=== PATIENT | male | born 1940 | race Caucasian/White ===

== ENCOUNTER 2017-12-30 09:55 | Emergency (ER) | payer MEDICARE, OTHER ==
[2017-12-30 10:09] VITALS: BP 126/75
--- NOTE | 2017-12-30 11:09 | ED Physician Documentation ---
PD HPI UPPER EXT INJURY - Stated complaint Stated Complaint: RT SHOULDER PX/RT ARM DISCOLORED - Chief complaint Chief Complaint: Ext Problem - History obtained from History obtained from: Patient, Family - History of Present Illness Location: Right, Shoulder Type of injury: Other (use yesterday) Where injury occurred: Home Timing - onset: Yesterday Timing - duration: Days (1) Timing - details: Gradual onset, Still present Improved by: Rest, Immobilization Worsened by: Moving, Palpating Associated symptoms: No: Weakness, Numbness, Tingling, Swelling Contributing factors: No: Anticoagulated Similar symptoms before: Has not had sx before Recently seen: Not recently seen - Additonal information Additional information: 77-year-old male with a history of osteoporosis and legal blindness has gone out on his riding lawnmower yesterday and he has now developed pain in his right shoulder. He is unable to move his arm around without significant pain to the anterior deltoid. He is able to move the shoulder and some range of motion and is able to hold it in abduction. He has not had this pain previously. He did not use a starting cord and he did not do anything specific with his right arm yesterday that he recalls. Review of Systems Constitutional: denies: Fever Eyes: denies: Decreased vision Ears: denies: Ear pain Nose: denies: Congestion Throat: denies: Sore throat Cardiac: denies: Chest pain / pressure, Palpitations Respiratory: denies: Dyspnea, Cough GI: reports: Diarrhea. denies: Abdominal Pain, Nausea, Vomiting : denies: Dysuria, Frequency Skin: denies: Rash Musculoskeletal: reports: Joint pain Neurologic: denies: Generalized weakness, Focal weakness, Numbness PD PAST MEDICAL HISTORY - Past Medical History Past Medical History: Yes - Past Surgical History Past Surgical History: Yes - Present Medications Home Medications: Ambulatory Orders Medication Instructions Recorded Confirmed Aspirin [Aspir 81] 1 mg PO DAILY 11/22/14 11/22/14 Lisinopril [Zestril] 5 mg PO DAILY 11/22/14 11/22/14 Oxycodone HCl [Oxycontin] 10 mg PO DAILY 11/22/14 11/22/14 Phenytoin [Dilantin] 300 mg PO DAILY 11/22/14 11/22/14 Sertraline [Zoloft] 150 mg PO DAILY 11/22/14 11/22/14 Ondansetron Odt [Zofran] 4 mg TL Q6H PRN #10 tablet 11/23/14 Alendronate [Fosamax] 70 mg PO ONCE 12/30/17 12/30/17 Alfuzosin HCl [Alfuzosin HCl ER] 10 mg PO 12/30/17 Cholecalciferol (Vitamin D3) 1,000 unit PO 12/30/17 [Vitamin D3] Levetiracetam [Keppra] 500 mg PO 12/30/17 - Allergies Allergies/Adverse Reactions: Allergies Allergy/AdvReac Type Severity Reaction Status Date / Time morphine AdvReac Hallucinati Verified 12/30/17 10:10 ons - Social History Does the pt smoke?: No Smoking Status: Never smoker Does the pt drink ETOH?: No Does the pt have substance abuse?: No - Immunizations Immunizations are current?: Yes - POLST Patient has POLST: No PD ED PE NORMAL - Vitals Vital signs reviewed: Yes (normal ) - General General: Alert and oriented X 3, No acute distress, Well developed/nourished - HEENT HEENT: Atraumatic, PERRL, EOMI - Neck Neck: Supple, no meningeal sign - Respiratory Respiratory: No respiratory distress - Derm Derm: Normal color, Warm and dry, No rash - Extremities Extremities: No deformity, No edema, Other (There is pain to palpate over the anterior deltoid and pain with attempting to hold the arm in abduction. He is able to do this. He does not have pain with ROM passively if done slowly. ) - Neuro Neuro: Alert and oriented X 3, filling separator 2-12 intact, No motor deficit, No sensory deficit, Normal speech Eye Opening: Spontaneous Motor: Obeys Commands Verbal: Oriented GCS Score: 15 - Psych Psych: Normal mood, Normal affect Results - Vitals Vitals: Vital Signs - 24 hr 12/30/17 10:04 Temperature 36.2 C L Heart Rate 85 Respiratory 16 Rate Blood Pressure 126/75 O2 Saturation 116 H Oxygen O2 Source Room air - Rads (name of study) shoulder Radiology: Prelim report reviewed (Impression: Soft tissue calcifications adjacent to the greater tuberosity, consistent with calcific tendinitis of the supraspinatus tendon. Otherwise normal examination of the right shoulder.), EMP read indepedently, See rad report PD MEDICAL DECISION MAKING - ED course Complexity details: reviewed old records, reviewed results, re-evaluated patient , considered differential, d/w patient, d/w family ED course: 77-year-old male with multiple advanced disease processes has calcific tendinitis of the right shoulder. He is on a pain regimen already we will place him into a sling, we have given him 10 mg of dexamethasone orally, and we will have him follow-up with orthopedics as needed. He does have medication for breakthrough pain at home. - Sepsis Event Vital Signs: Vital Signs - 24 hr 12/30/17 10:04 Temperature 36.2 C L Heart Rate 85 Respiratory 16 Rate Blood Pressure 126/75 O2 Saturation 116 H Oxygen O2 Source Room air Departure - Departure Disposition: 01 Home, Self Care Clinical Impression: Calcific tendinitis of right shoulder Condition: Stable Instructions: ED Tendinitis Calcific Follow-Up: [facility] [Provider Group] Prescriptions: HYDROcod/ACETAM 5/325 [[place] 5/325] 1 - 2 ea PO Q6H PRN #15 tablet PRN Reason: Pain
[2017-12-30] MEDS: DEXAMETHASONE 10 MG/ML VIAL PO STA (11:12)
--- NOTE | 2017-12-30 11:46 | XRAY Report ---
Procedure Date: 12/30/2017 Accession Number: [id number] / [id number] Procedure: XR - Shoulder 3 View RT CPT Code: FULL RESULT: EXAM: RIGHT SHOULDER RADIOGRAPHY 3 VIEWS EXAM DATE: 12/30/2017. CLINICAL HISTORY: Anterior deltoid pain. COMPARISON: None. TECHNIQUE: AP, Grashey and scapular Y views. FINDINGS: Bones: Normal. No fracture or bone lesion. Joints: The glenohumeral joint and the acromioclavicular joint appear normal. Soft tissues: Calcifications adjacent to the greater tuberosity. 4 mm right mid lung calcified granuloma. IMPRESSION: Soft tissue calcifications adjacent to the greater tuberosity, consistent with calcific tendinosis of the supraspinatus tendon. Otherwise normal examination of the right shoulder. [facility]
== END 2017-12-30 12:09 | disposition home or self-care (01) ==
LOC: ED 09:55
DX: M75.31 Calcific tendinitis of right shoulder (principal); M81.0 Age-related osteoporosis without current pathological fracture; Z79.82 Long term (current) use of aspirin; H54.8 Legal blindness, as defined in USA
CPT/HCPCS: 99282; 99283